=== PATIENT | female | born 1970 | race Caucasian/White ===

== ENCOUNTER 2018-01-20 13:45 | Emergency (ER) | payer OTHER, SELFPAY ==
[2018-01-20 13:52] VITALS: BP 156/95; PULSE 94; RESP 16; TEMP 37; O2SAT 98
--- NOTE | 2018-01-20 14:00 | W.ED.GENAD ---
Discharge Plan Disposition Patient Disposition: HOME Condition: Fair Discharge Details Chief Complaint: RespSymp Clinical Impression: Sinusitis Primary Care Provider: Jessica Grimaldo ED Provider: Laura Mario Home Meds and New Rx's Prescriptions: New amoxicillin-pot clavulanate [Augmentin] 875-125 mg tablet 1 tab PO BID Qty: 14 RF: 0 Continue ibuprofen [Advil] 200 MG tablet 200 mg PO PRNRF: 0 Discharge Instructions Instructions: Sinusitis (ED) Additional Instructions: Encourage hydration. Tylenol and/or ibuprofen as needed for discomfort. May continue with the nasal saline or try a [place] pot to help with your sinus congestion. Please begin Augmentin as prescribed. Even if symptoms improve, please take the entire course. Please follow-up with primary care provider in 1 week if symptoms have not completely resolved. If you develop any new or worsening symptoms please seek care urgently once again. Referrals: Jessica Grimaldo MD [Primary Care Provider] - ([phone]) Medical Decision Making Patient is a 47-year-old female presents today with chief complaint of left-sided maxillary sinus discomfort. She reports the discomfort began approximately 10 days ago. Initially, the patient was thinking that this is related to her grinding her teeth or dental infection. She was seen by her dentist who advised that there is no acute dental abnormalities or signs of infection. States that she has been feeling subjectively feverish and chilled. No documented fevers, she is currently afebrile. Denies any ear pain, sore throat, cough or other upper respiratory symptoms. She does report that she has had a large amount of nasal discharge is been very malodorous. Denies having history of sinus infections, no previous sinus surgeries. Patient appears nontoxic. Aside from the maxillary sinus discomfort, exam is otherwise benign. Given the length of symptoms that symptoms have progressively been worsening, I feel that treating with antibiotics at this time is appropriate. Advised home remedies and [id number] medications that may also help with symptomatic management. She does report that she had been using anti-inflammatory which was helping with her discomfort but stopped, advised she may continue this for the short course length of expected symptoms. We discussed new/worsening symptoms when to seek care urgently once again. Advise follow-up with primary care in the next week for reevaluation if symptoms have not resolved. All of her questions and concerns were addressed and she is in agreement with this plan. HPI General Mode of arrival: ambulatory. Date/Time Provider Initiated Documentation: 01/20/18 13:49. Limitations to Documentation: no limitations. Information obtained by: patient. History of Present Illness 47 year old F presents to the emergency department with the chief complaint of left maxillar sinus pain, described as moderate, with intensity rated at 7. Quality is described as aching, and is localized to the face. Patient reports no radiation. Patient started experiencing this day(s) (10) and it has been constant. Medication improves symptom(s), No exacerbating factors reported . Patient notes denies chest pain, cough, fever/chills, headaches, loss of appetite, nausea/vomiting, rash and shortness of breath. Patient did receive the following treatments prior to arrival, none Related Data Home Medications Medication Instructions Recorded Confirmed ibuprofen [Advil] 200 mg PO PRN 09/20/12 09/20/12 amoxicillin-pot clavulanate 1 tab PO BID #14 tab 01/20/18 [Augmentin] Previous Rx's Medication Instructions Recorded amoxicillin-pot clavulanate 1 tab PO BID #14 tab 01/20/18 [Augmentin] Allergies Allergy/AdvReac Type Severity Reaction Status Date / Time No Known Allergies Allergy Unverified 01/20/18 13:59 General Stated Complaint: RespSymp LISE: 4 Review of Systems Constitutional Reports as per HPI, Denies chills, Denies fever(s), Denies headache(s) and Denies poor appetite Eyes Reports as per HPI, Denies eye discharge and Denies irritation ENT Reports as per HPI, Denies dental pain, Denies ear discharge, Denies otalgia, Reports facial pain, Denies headache(s), Denies hoarseness, Denies mouth lesions, Denies mouth pain, Reports nasal congestion, Reports nasal discharge, Denies neck pain, Reports post nasal drip, Reports sinus pain and Reports sinus pressure Cardiovascular Reports as per HPI, Denies chest pain and Denies dyspnea Respiratory Denies cough and Denies dyspnea Gastrointestinal Reports as per HPI, Denies abdominal pain, Denies change in bowel habits, Denies change in stool character, Denies nausea and Denies vomiting Musculoskeletal Denies neck pain Integumentary/Breasts Reports as per HPI and Denies rash Neurologic Denies headache(s) [facility] Social History Smoking/Tobacco Use Status: Current every day Social History Smoking/Tobacco Use Status: Current every day Exam Const General: cooperative, healthy appearing, comfortable, no acute distress, well developed and well groomed Nutritional Appearance: average body habitus and well nourished Orientation: alert and awake [facility] Head: normal to inspection, normocephalic and atraumatic Ears: hearing grossly normal bilaterally, external ears normal and TM's normal bilaterally General nose exam: external nose normal and nares normal Face and sinus: sinuses tender (patient is tender over the left maxillary sinus, no pain elsewhere), face symmetric, no crepitus, no ecchymosis, no erythema, no edema, no fluctuance, no lacerations, sinus tenderness, tenderness and No dry mucous membranes Mouth: oral mucosae normal, lip normal, tongue normal, oropharynx normal and moist mucous membranes Teeth and gingiva: dentition normal Throat: posterior oropharynx normal, tonsils normal and uvula midline Eyes General: appearance normal, both eyes and all related structures Neck Neck: normal visual inspection, full ROM, no lymphadenopathy and no meningeal signs Resp Effort & Inspection: normal respiratory effort, able to speak in complete sentences and no respiratory distress Auscultation: clear to auscultation bilaterally, no rales, no rhonchi and no wheezes Cardio Rate: regular rate Rhythm: regular rhythm Heart Sounds: S1 normal and S2 normal Skin General skin exam: no rashes or lesions noted Neuro General: alert and awake Cognition: normal cognition Speech: speech normal Gait: normal gait Psych Appearance: grossly normal and well kempt Mental Status: mental status grossly normal Speech and Movement: speech and movement normal Course Vital Signs Temperature 37 C 01/20/18 13:52 Pulse 94 H 01/20/18 13:52 Respiratory Rate 16 01/20/18 13:52 Blood Pressure 156/95 H 01/20/18 13:52 Pulse Oximetry 98 01/20/18 13:52 Temperature 37 C 01/20/18 13:52 Temperature Source Skin 01/20/18 13:52 Pulse 94 H 01/20/18 13:52 Respiratory Rate 16 01/20/18 13:52 Respiratory Effort Non-Labored 01/20/18 13:52 Blood Pressure 156/95 H 01/20/18 13:52 Blood Pressure Position Sitting 01/20/18 13:52 Pulse Oximetry 98 01/20/18 13:52 Pain Level 7 01/20/18 13:52
--- NOTE | 2018-01-20 14:28 | ED.GENADUL_ITS ---
Discharge Plan Disposition Patient Disposition: HOME Condition: Fair Discharge Details Chief Complaint: RespSymp Clinical Impression: Sinusitis Primary Care Provider: Jessica Grimaldo ED Provider: Laura Mario Home Meds and New Rx's Prescriptions: New amoxicillin-pot clavulanate [Augmentin] 875-125 mg tablet 1 tab PO BID Qty: 14 RF: 0 Continue ibuprofen [Advil] 200 MG tablet 200 mg PO PRNRF: 0 Discharge Instructions Instructions: Sinusitis (ED) Additional Instructions: Encourage hydration. Tylenol and/or ibuprofen as needed for discomfort. May continue with the nasal saline or try a [place] pot to help with your sinus congestion. Please begin Augmentin as prescribed. Even if symptoms improve, please take the entire course. Please follow-up with primary care provider in 1 week if symptoms have not completely resolved. If you develop any new or worsening symptoms please seek care urgently once again. Referrals: Jessica Grimaldo MD [Primary Care Provider] - ([phone]) Medical Decision Making Patient is a 47-year-old female presents today with chief complaint of left- sided maxillary sinus discomfort. She reports the discomfort began approximately 10 days ago. Initially, the patient was thinking that this is related to her grinding her teeth or dental infection. She was seen by her dentist who advised that there is no acute dental abnormalities or signs of infection. States that she has been feeling subjectively feverish and chilled. No documented fevers, she is currently afebrile. Denies any ear pain, sore throat, cough or other upper respiratory symptoms. She does report that she has had a large amount of nasal discharge is been very malodorous. Denies having history of sinus infections, no previous sinus surgeries. Patient appears nontoxic. Aside from the maxillary sinus discomfort, exam is otherwise benign. Given the length of symptoms that symptoms have progressively been worsening, I feel that treating with antibiotics at this time is appropriate. Advised home remedies and [id number] medications that may also help with symptomatic management. She does report that she had been using anti- inflammatory which was helping with her discomfort but stopped, advised she may continue this for the short course length of expected symptoms. We discussed new/worsening symptoms when to seek care urgently once again. Advise follow-up with primary care in the next week for reevaluation if symptoms have not resolved. All of her questions and concerns were addressed and she is in agreement with this plan. HPI General Mode of arrival: ambulatory . Date/Time Provider Initiated Documentation: 01/20/18 13:49 . Limitations to Documentation: no limitations . Information obtained by: patient . History of Present Illness 47 year old F presents to the emergency department with the chief complaint of left maxillar sinus pain, described as moderate, with intensity rated at 7. Quality is described as aching, and is localized to the face. Patient reports no radiation. Patient started experiencing this day(s) (10) and it has been constant. Medication improves symptom(s), No exacerbating factors reported . Patient notes denies chest pain, cough, fever/chills, headaches, loss of appetite, nausea/vomiting, rash and shortness of breath. Patient did receive the following treatments prior to arrival, none Related Data Home Medications Medication Instructions Recorded Confirmed ibuprofen [Advil] 200 mg PO PRN 09/20/12 09/20/12 amoxicillin-pot clavulanate 1 tab PO BID #14 tab 01/20/18 [Augmentin] Previous Rx's Medication Instructions Recorded amoxicillin-pot clavulanate 1 tab PO BID #14 tab 01/20/18 [Augmentin] Allergies Allergy/AdvReac Type Severity Reaction Status Date / Time No Known Allergies Allergy Unverified 01/20/18 13:59 General Stated Complaint: RespSymp LISE: 4 Review of Systems Constitutional Reports as per HPI, Denies chills, Denies fever(s), Denies headache(s) and Denies poor appetite Eyes Reports as per HPI, Denies eye discharge and Denies irritation ENT Reports as per HPI, Denies dental pain, Denies ear discharge, Denies otalgia, Reports facial pain, Denies headache(s), Denies hoarseness, Denies mouth lesions , Denies mouth pain, Reports nasal congestion, Reports nasal discharge, Denies neck pain, Reports post nasal drip, Reports sinus pain and Reports sinus pressure Cardiovascular Reports as per HPI, Denies chest pain and Denies dyspnea Respiratory Denies cough and Denies dyspnea Gastrointestinal Reports as per HPI, Denies abdominal pain, Denies change in bowel habits, Denies change in stool character, Denies nausea and Denies vomiting Musculoskeletal Denies neck pain Integumentary/Breasts Reports as per HPI and Denies rash Neurologic Denies headache(s) [facility] Social History Smoking/Tobacco Use Status: Current every day Social History Smoking/Tobacco Use Status: Current every day Exam Const General: cooperative, healthy appearing, comfortable, no acute distress, well developed and well groomed Nutritional Appearance: average body habitus and well nourished Orientation: alert and awake [place] Head: normal to inspection, normocephalic and atraumatic Ears: hearing grossly normal bilaterally, external ears normal and TM's normal bilaterally General nose exam: external nose normal and nares normal Face and sinus: sinuses tender (patient is tender over the left maxillary sinus , no pain elsewhere), face symmetric, no crepitus, no ecchymosis, no erythema, no edema, no fluctuance, no lacerations, sinus tenderness, tenderness and No dry mucous membranes Mouth: oral mucosae normal, lip normal, tongue normal, oropharynx normal and moist mucous membranes Teeth and gingiva: dentition normal Throat: posterior oropharynx normal, tonsils normal and uvula midline Eyes General: appearance normal, both eyes and all related structures Neck Neck: normal visual inspection, full ROM, no lymphadenopathy and no meningeal signs Resp Effort & Inspection: normal respiratory effort, able to speak in complete sentences and no respiratory distress Auscultation: clear to auscultation bilaterally, no rales, no rhonchi and no wheezes Cardio Rate: regular rate Rhythm: regular rhythm Heart Sounds: S1 normal and S2 normal Skin General skin exam: no rashes or lesions noted Neuro General: alert and awake Cognition: normal cognition Speech: speech normal Gait: normal gait Psych Appearance: grossly normal and well kempt Mental Status: mental status grossly normal Speech and Movement: speech and movement normal Course Vital Signs Temperature 37 C 01/20/18 13:52 Pulse 94 H 01/20/18 13:52 Respiratory Rate 16 01/20/18 13:52 Blood Pressure 156/95 H 01/20/18 13:52 Pulse Oximetry 98 01/20/18 13:52 Temperature 37 C 01/20/18 13:52 Temperature Source Skin 01/20/18 13:52 Pulse 94 H 01/20/18 13:52 Respiratory Rate 16 01/20/18 13:52 Respiratory Effort Non-Labored 01/20/18 13:52 Blood Pressure 156/95 H 01/20/18 13:52 Blood Pressure Position Sitting 01/20/18 13:52 Pulse Oximetry 98 01/20/18 13:52 Pain Level 7 01/20/18 13:52
== END 2018-01-20 14:10 | disposition home or self-care (01) ==
PROVIDERS: Emergency Provider Physician Assistant; PCP Family Medicine
DX: J01.90 Acute sinusitis, unspecified (principal); F17.210 Nicotine dependence, cigarettes, uncomplicated
CPT/HCPCS: 99283

== ENCOUNTER 2018-12-29 09:54 | Outpatient (CLI) | payer OTHER, SELFPAY ==
[2018-12-29 11:16] LABS: HCT 39.5 % (36.0-46.0); HGB 12.8 g/dL (12.0-15.5); Mean Corp. HGB Concentration 32.4 g/dL (32.0-36.0); Mean Corpuscular Hemoglobin 31.6 pg (27.0-33.0); Mean Corpuscular Volume 97.5 fL (80-95); Mean Platelet Volume 9.1 fL (8.0-11.0); Platelet Count 420 x1000/uL (130-400); RBC 4.05 m/cumm (4.00-5.20); RBC Distribution Width 12.8 % (11.7-14.6); White Blood Cell Count 5.39 k/cumm (4.4-10.8)
[2018-12-29 12:06] LABS: Calculated LDL 83 mg/dL; Cholesterol 186 mg/dL (50-200); Glucose 87 mg/dL (70-100); HDL Cholesterol 93 mg/dL (40-60); TSH (W/Ref FT4) 1.04 uIU/mL (0.36-3.74); Triglyceride 52 mg/dL (30-150)
== END 2018-12-29 10:14 ==
PROVIDERS: PCP Nurse Practitioner; Visit Provider Nurse Practitioner
DX: Z00.00 Encounter for general adult medical examination without abnormal findings (principal); Z13.29 Encounter for screening for other suspected endocrine disorder; Z13.1 Encounter for screening for diabetes mellitus; Z86.2 Personal history of diseases of the blood and blood-forming organs and certain disorders involving the immune mechanism
CPT/HCPCS: 36415; 80061; 82947; 85027; 84443